=== PATIENT | female | born 1985 | race Caucasian/White ===

== ENCOUNTER 2018-05-13 10:23 | Emergency (ER) | payer OTHER ==
[~2018-05-13] VITALS: Ht 170.2 cm; Wt 65.3 kg
--- NOTE | 2018-05-13 10:48 | NUR ---
FEVER, SORE THROAT SINCE SUNDAY. SEEN AT URGENT CARE AND ON ANTIBIOTICS. PT AAOX3, VSS. PT C/O DIARRHEA, DENIES ABD PAIN, N/V OR ANY OTHER DISCOMFORT. AWAITING EVAL BY /PA. WILL CONT TO MONITOR.
[2018-05-13] MEDS ORDERED: IV NS 0.9% 1,000 ML BAG IV ONE (11:30)
--- NOTE | 2018-05-13 11:38 | NUR ---
Sujatha elizondo in ED - 05/13/[address] at [address] 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
[2018-05-13] MEDS ORDERED: IBUPROFEN 600 MG TABLET PO ONE ×2 (12:12→12:30)
--- NOTE | 2018-05-13 12:42 | NUR ---
Patient discharged to home in stable condition. Written and verbal after care instructions given. Patient verbalizes understanding of instruction.
[2018-05-13 12:45] VITALS: BP 110/84
== END 2018-05-13 12:45 | disposition home or self-care (01) ==
LOC: ER 10:39
DX: A08.4 Viral intestinal infection, unspecified (principal); B34.9 Viral infection, unspecified; J45.909 Unspecified asthma, uncomplicated; R19.7 Diarrhea, unspecified
CPT/HCPCS: A4606; J7030; Z7610